=== PATIENT | female | born 1965 | race Two or more races ===

== ENCOUNTER 2019-10-19 14:44 | Outpatient (CLI) | payer OTHER | END 2019-10-19 14:52 | disposition home or self-care (01) | LOC: RAD 14:44 | DX: N20.9 Urinary calculus, unspecified (principal) ==

== ENCOUNTER 2023-05-28 11:15 | Outpatient (CLI) | payer OTHER | END 2023-05-28 11:16 | disposition home or self-care (01) | LOC: NUCLEAR 11:15 | DX: Z13.820 Encounter for screening for osteoporosis (principal) ==